=== PATIENT | female | born 1990 | race Caucasian/White ===

== ENCOUNTER → 2016-07-28 | Outpatient (CLI) | payer OTHER | END | disposition home or self-care (01) | LOC: MW.CHOBGYN 11:50 | PROVIDERS: ATTEND Advanced Practice Midwife | DX: Z34.90 Encounter for supervision of normal pregnancy, unspecified, unspecified trimester (principal) | CPT/HCPCS: 87081 ==

== ENCOUNTER 2016-08-07 23:08 | Outpatient (CLI) | payer OTHER ==
[2016-08-08 01:35] LABS: CHLORIDE,CL 108 mmol/L (98-110); SODIUM,NA 138 mmol/L (136-146)
[2016-08-08] MEDS ORDERED: hydrOXYzine Pamoate 25 MG Cap PO ONE (01:57)
[2016-08-08] MEDS ORDERED: hydrOXYzine Pamoate 25 MG Cap ONE (02:03)
== END 2016-08-08 06:20 | disposition home or self-care (01) ==
LOC: MW.OBCHECK 23:08 → MW.OB 23:09 → MW.OBCHECK 08-08 06:20
PROVIDERS: ATTEND Obstetrics & Gynecology
DX: Z34.93 Encounter for supervision of normal pregnancy, unspecified, third trimester (principal)
CPT/HCPCS: 36415; 59025; 80053; 81001; 83615; 84550; 85025; A9270

== ENCOUNTER → 2016-08-14 | Outpatient (CLI) | payer OTHER ==
[2016-08-14 12:26] LABS: CHLORIDE,CL 108 mmol/L (98-110); SODIUM,NA 137 mmol/L (136-146)
--- NOTE | 2016-08-17 13:21 | US ---
EXAM DATE: 08/14/16 PATIENT'S AGE: 26 Patient: ALENA LOCKETT Facility: [place], [place] Site . Site : [id number] Study: US OB Pelvis [id number]/[id number] 2:19:02 PM Ordering Physician: Konrad Nichols Final Report: HISTORY: . Evaluate interval growth. Technique: Obstetric ultrasound. Comparison: 03/24/2016. Findings: There is a living single intrauterine gestation with a calculated gestational age based on ultrasound measurements of 36 weeks, 3 days. This compares to a clinical age of 39 weeks, 0 days. Estimated weight is 3026 g which is at the 17th percentile. heart rate 145 beats per minute. - Measurements: Biparietal diameter: 8.9 cm - 36 weeks, 1 day - 12th percentile. Head circumference: 32.1 cm - 36 weeks, 2 days - less than 3rd percentile. Abdominal circumference: 33.2 cm - 37 weeks, 1 day - 21st percentile. Femur length: 7.1 cm - 36 weeks, 4 days - 7th percentile. - There is a normal quantity amniotic fluid with an BOB of 11.6. Impression: 1. Living single intrauterine gestation with calculated gestational age based on ultrasound measurements of 36 weeks, 3 days. This lags behind a gestational age of 39 weeks, 0 days. 2. Estimated weight is 3026 g which is at the 17th percentile. Note that the head circumference measurement is at less than 3rd percentile. Measurements as above. 3. Normal amniotic fluid index. Dictated by Trey Flores MD @ Aug 14 2016 4:08PM (Electronic Signature) Report Signed by Proxy. MELVA
== END ==
LOC: MW.US 10:15
PROVIDERS: ATTEND Advanced Practice Midwife
DX: O13.3 Gestational [pregnancy-induced] hypertension without significant proteinuria, third trimester (principal); O34.219 Maternal care for unspecified type scar from previous cesarean delivery
CPT/HCPCS: 36415; 76815-26; 76816; 80053; 82570; 84156; 84550; 85025

== ENCOUNTER 2016-08-15 07:33 | Inpatient (IN) | payer OTHER ==
[2016-08-15] MEDS ORDERED: Nalbuphine 10 MG/1 ML Vial IVPUSH PRN (07:44)
[2016-08-15] MEDS ORDERED: Butorphanol 1 MG/ML SDV IVPUSH PRN (07:44)
[2016-08-15] MEDS ORDERED: Misoprostol 200 MCG Tab PO PRN (07:44)
[2016-08-15] MEDS ORDERED: Methylergonovine 0.2 MG/1 ML Amp IM PRN (07:44)
[2016-08-15] MEDS ORDERED: Water For Irrigation,Sterile 1,000 ML Container IRR PRN (07:44)
[2016-08-15] MEDS ORDERED: Carboprost Tromethamine 250 MCG/1 ML Amp IM PRN (07:44)
[2016-08-15] MEDS ORDERED: Lidocaine 1% 50 ML MDV INJECT PRN (07:44)
[2016-08-15] MEDS ORDERED: Sodium Chloride 0.9% 2.5 ML Syringe FLUSH PRN (07:44)
[2016-08-15] MEDS ORDERED: Sodium Chloride 0.9% 10 ML Syringe FLUSH PRN (07:44)
[2016-08-15] MEDS ORDERED: Lactated Ringers 1,000 ML IV SCH (07:45)
--- NOTE | 2016-08-15 08:06 | PCM.LDHP ---
L&D History of Present Illness - General Date of Service: 08/15/16 Admit Problem/Dx: Patient Status Order with Admit Dx/Problem 08/15/16 07:44 Patient Status [ADT] Routine Admission Diagnosis/Problem Admission Diagnosis/Problem 08/15/16 07:57 26 yo EDC08/21/2016 39 1/7 wks. O+, RI, GBS neg. Hx prior C/S, 1 successful of 10lb child. Source of Information: Patient History Limitations: Reports: No Limitations - History of Present Illness Improves with: Reports: None Worsens with: Reports: None Associated Symptoms: Reports: N - Related Data Allergies/Adverse Reactions: Allergies Allergy/AdvReac Type Severity Reaction Status Date / Time clindamycin Allergy Rash Verified 08/20/14 15:32 Penicillins Allergy Rash Verified 08/20/14 15:32 H&P Review of Systems - Review of Systems: Review Of Systems: ROS reveals no pertinent complaints other than HPI. General: Reports: No Symptoms HEENT: Reports: No Symptoms Pulmonary: Reports: No Symptoms Cardiovascular: Reports: No Symptoms Gastrointestinal: Reports: No Symptoms Genitourinary: Reports: No Symptoms Musculoskeletal: Reports: No Symptoms Skin: Reports: No Symptoms Psychiatric: Reports: No Symptoms Neurological: Reports: No Symptoms Hematologic/Lymphatic: Reports: No Symptoms Immunologic: Reports: No Symptoms L&D Exam - Exam Exam: See Below - Vital Signs Weight: 84.368 kg - OB Specific Contraction Intensity: Strong Movement: Active Heart Tones: Present Heart Rate (FHR) Variability: Moderate (6-25 bmp) Presentation: Vertex - Powers Score Powers Score Cervix Position: Posterior Powers Score Consistency: Soft Powers Score Effacement: >80% Powers Score Dilation: > 5 cm Powers Score 's Station: -1 ,0 Powers Score Total: 10 - Exam General: Alert, Oriented, Cooperative HEENT: Hearing Intact Lungs: Normal Respiratory Effort Abdomen: Soft (gravid) Rectal Exam: Deferred Genitourinary: Normal bimanual exam, Cervical dilitation Back Exam: Full Range of Motion Extremities: Normal Inspection Skin: Warm, Dry, Intact Neurological: Cranial Nerves Intact Psychiatric: Alert, Normal Affect, Normal Mood - Problem List (1) Supervision of normal IUP (intrauterine ) in multigravida SNOMED Code(s): 053859099, 476966676, 967911844 ICD Code: Z34.80 - ENCOUNTER FOR SUPRVSN OF NORMAL , UNSP TRIMESTER Status: Acute Priority: High Current Visit: Yes Qualifiers: Trimester: third trimester Qualified Code(s): Z34.83 - Encounter for supervision of other normal , third trimester (2) Hx successful (vaginal after ), currently SNOMED Code(s): 461647369, 346351646, 096697951 ICD Code: O34.219 - MATERNAL CARE FOR UNSP TYPE SCAR FROM PREVIOUS DEL Status: Acute Priority: High Current Visit: Yes Problem List Initiated/Reviewed/Updated: Yes Orders Last 24hrs: Active Orders 24 hr Category Date Time Status Patient Status [ADT] Routine ADT 08/15/16 07:44 Active Heart Tones [RC] CONTINUOUS Care 08/15/16 07:44 Active Non Stress Test [RC] PER UNIT ROUTINE Care 08/15/16 07:44 Active May Shower [RC] ASDIRECTED Care 08/15/16 07:44 Active Notify Provider [RC] PRN Care 08/15/16 07:44 Active Up ad Ashli [RC] ASDIRECTED Care 08/15/16 07:44 Active Vaginal Exam [RC] PRN Care 08/15/16 07:44 Active Vital Signs [RC] PER UNIT ROUTINE Care 08/15/16 07:44 Active CBC W/O DIFF,HEMOGRAM [HEME] Routine Lab 08/15/16 07:44 Ordered TYPE AND SCREEN [BBK] Routine Lab 08/15/16 07:44 Ordered Butorphanol [Stadol] Med 08/15/16 07:44 Ordered 1 mg IVPUSH Q1H PRN Carboprost Tromethamine [Hemabate DS] Med 08/15/16 07:44 Ordered 250 mcg IM ASDIRECTED PRN Lactated Ringers [Ringers, Lactated] 1,000 ml Med 08/15/16 07:45 Ordered IV ASDIRECTED Lidocaine 1% [Xylocaine 1%] Med 08/15/16 07:44 Ordered 50 ml INJECT .ONCE PRN Methylergonovine [Methergine] Med 08/15/16 07:44 Ordered 0.2 mg IM ASDIRECTED PRN Misoprostol [Cytotec] Med 08/15/16 07:44 Ordered 200 mcg PO .ONCE PRN Nalbuphine [Nubain] Med 08/15/16 07:44 Ordered 10 mg IVPUSH Q1H PRN Oxytocin/Lactated Ringers [Pitocin in LR 30 Units/500 Med 08/15/16 07:45 Ordered ML] 30 unit in 500 ml IV ASDIRECTED Sodium Chloride 0.9% [Saline Flush] Med 08/15/16 07:44 Ordered 10 ml FLUSH ASDIRECTED PRN Sodium Chloride 0.9% [Saline Flush] Med 08/15/16 07:44 Ordered 2.5 ml FLUSH ASDIRECTED PRN Water For Irrigation,Sterile [Sterile Water for Med 08/15/16 07:44 Ordered Irrigation] 1,000 ml IRR ASDIRECTED PRN Scalp Electrode [WOMSER] Per Unit Routine Oth 08/15/16 07:44 Ordered Peripheral IV Insertion Adult [OM.PC] Routine Oth 08/15/16 07:44 Ordered Resuscitation Status Routine Resus Stat 08/15/16 07:44 Ordered Medication Orders Butorphanol Tartrate (Stadol) 1 mg IVPUSH Q1H PRN PRN Reason: Pain Carboprost Tromethamine (Hemabate Ds) 250 mcg IM ASDIRECTED PRN PRN Reason: Post Hemorrhage Lactated Ringer's (Ringers, Lactated) 1,000 mls @ 150 mls/hr IV ASDIRECTED EDGARD Oxytocin/Lactated Ringer's (Pitocin In Lr 30 Units/500 Ml) 30 unit in 500 mls @ 999 mls/hr IV ASDIRECTED EDGARD PRN Reason: 999 MUNITS/MIN Stop: 08/15/16 08:16 Lidocaine HCl (Xylocaine 1%) 50 ml INJECT .ONCE PRN PRN Reason: Laceration repair Methylergonovine Maleate (Methergine) 0.2 mg IM ASDIRECTED PRN PRN Reason: Post Hemorrhage Misoprostol (Cytotec) 200 mcg PO .ONCE PRN PRN Reason: Post Hemorrhage Nalbuphine HCl (Nubain) 10 mg IVPUSH Q1H PRN PRN Reason: Pain (severe 7-10) Stop: 08/15/16 09:45 Sodium Chloride (Saline Flush) 10 ml FLUSH ASDIRECTED PRN PRN Reason: Keep Vein Open Sodium Chloride (Saline Flush) 2.5 ml FLUSH ASDIRECTED PRN PRN Reason: Keep Vein Open Sterile Water (Sterile Water For Irrigation) 1,000 ml IRR ASDIRECTED PRN PRN Reason: delivery Assessment/Plan Comment:: Labor A: 26 yo EDC08/21/2016 39 1/7 wks. O+, RI, GBS neg. Hx prior C/S, 1 successful of 10lb child. P: Admit to L&D, anticipate . RN herson, Derik with anes, and Dr Clark updated on pt status. Dr Clark on his way in.
[2016-08-15] MEDS: Oxytocin/Lactated Ringers 30 UNIT/500 ML BAG IV SCH ×2 (09:55→12:36)
--- NOTE | 2016-08-15 10:27 | PCM.DEL ---
L & D Note - General Info Date of Service: 08/15/16 Mother's Due Date: 08/21/16 - Delivery Note Labor: spontaneous Delivery Outcome: Livebirth Infant Delivery Method: Spontaneous Vaginal Delivery Infant Delivery Mode: Spontaneous Presentation: Vertex Nuchal cord: none Anesthesia Type: None Anesthetic: lidocaine (xylocaine) 1% plain Local anesthetic volume: 2cc Amniotic Fluid Description: Clear Episiotomy Type: None Laceration: 1st degree Suture type: vicryl Placenta: intact, spontaneous Cord: 3 vessels Estimated blood loss: 200 Resuscitation needed: No Score 1 min: 7 Score 5 min: 8 Second Stage Interventions: Reports: Pushing Effectively Delivery Comments (Free Text/Narrative):: of viable female over intact perineum. Head delivered with great pushing, shoulders and body followed easily. to mothers abdomen. Delayed cord clamping. Pitocin to IVF. Cord clamped and cut by FOB. Placenta delivered grossly intact. Inspection noted 1st degree lac that was numbed with 1% lidocaine and repaired in the normal manor with 3-1 brittani. EBL 200cc, APGARS 7/8, Wt: 6lb 10oz. Mother and baby left in stable condition for recovery. Counts all correct. - General Info Date of Service: 08/15/16 Admission Dx/Problem (Free Text): Patient Status Order with Admit Dx/Problem 08/15/16 07:44 Patient Status [ADT] Routine Admission Diagnosis/Problem Admission Diagnosis/Problem 08/15/16 07:57 26 yo EDC/ 39 1/7 wks. O+, RI, GBS neg. Hx prior C/S, 1 successful of 10lb child. Functional Status: Reports: pain controlled, tolerating diet - Review of Systems General: Reports: No Symptoms HEENT: Reports: no symptoms Pulmonary: Reports: no symptoms Cardiovascular: Reports: No Symptoms Gastrointestinal: Reports: No symptoms Genitourinary: Reports: no symptoms Musculoskeletal: Reports: no symptoms Skin: Reports: no symptoms Neurological: Reports: No Symptoms Psychiatric: Reports: no symptoms - Patient Data Weight - most recent: 84.368 kg Lab Results last 24 hrs: Laboratory Results - last 24 hr 08/15/16 08/15/16 Range/Units 07:58 07:58 WBC 12.30 H (4.0-11.0) K/uL RBC 4.36 (4.30-5.90) M/uL Hgb 13.9 (12.0-16.0) g/dL Hct 40.0 (36.0-46.0) % MCV 91.7 (80.0-98.0) fL MCH 31.9 (27.0-32.0) pg MCHC 34.8 (31.0-37.0) g/dL RDW Std Deviation 48.8 (28.0-62.0) fl RDW Coeff of [place] 15 (11.0-15.0) % Plt Count 166 (150-400) K/uL MPV 13.20 H (7.40-12.00) fL Nucleated RBC % 0.0 /100WBC Nucleated RBCs # 0 K/uL Blood Type O POSITIVE Antibody Screen NEGATIVE Med Orders - Current: Current Medications Butorphanol Tartrate (Stadol) 1 mg IVPUSH Q1H PRN PRN Reason: Pain Carboprost Tromethamine (Hemabate Ds) 250 mcg IM ASDIRECTED PRN PRN Reason: Post Hemorrhage Lactated Ringer's (Ringers, Lactated) 1,000 mls @ 150 mls/hr IV ASDIRECTED EDGARD Last Admin: 08/15/16 08:07 Dose: 150 mls/hr Lidocaine HCl (Xylocaine 1%) 50 ml INJECT .ONCE PRN PRN Reason: Laceration repair Last Admin: 08/15/16 10:03 Dose: 50 ml Methylergonovine Maleate (Methergine) 0.2 mg IM ASDIRECTED PRN PRN Reason: Post Hemorrhage Misoprostol (Cytotec) 200 mcg PO .ONCE PRN PRN Reason: Post Hemorrhage Sodium Chloride (Saline Flush) 10 ml FLUSH ASDIRECTED PRN PRN Reason: Keep Vein Open Last Admin: 08/15/16 10:06 Dose: 10 ml Sodium Chloride (Saline Flush) 2.5 ml FLUSH ASDIRECTED PRN PRN Reason: Keep Vein Open Sterile Water (Sterile Water For Irrigation) 1,000 ml IRR ASDIRECTED PRN PRN Reason: delivery Discontinued Medications Oxytocin/Lactated Ringer's (Pitocin In Lr 30 Units/500 Ml) 30 unit in 500 mls @ 999 mls/hr IV ASDIRECTED EDGARD PRN Reason: 999 MUNITS/MIN Stop: 08/15/16 08:16 Last Admin: 08/15/16 09:55 Dose: 999 munits/min, 999 mls/hr Nalbuphine HCl (Nubain) 10 mg IVPUSH Q1H PRN PRN Reason: Pain (severe 7-10) Stop: 08/15/16 09:45 - Exam General: alert, oriented, cooperative, no acute distress Lungs: Normal respiratory effort Abdomen: soft, no tenderness, no distension (Female) Exam: Normal External Exam, Normal Bimanual Exam, Vaginal Bleeding, Vaginal Lesions Back Exam: Full Range of Motion Extremities: no edema Skin: warm, dry, intact Wound/Incisions: healing well Neurological: no new focal deficit Psy/Mental Status: alert, normal affect, normal mood - Problem List & Annotations (1) Supervision of normal IUP (intrauterine ) in multigravida SNOMED Code(s): 743183987, 799848504, 131670540 Code(s): Z34.80 - ENCOUNTER FOR SUPRVSN OF NORMAL , UNSP TRIMESTER Status: Acute Priority: High Current Visit: Yes Qualifiers: Trimester: third trimester Qualified Code(s): Z34.83 - Encounter for supervision of other normal , third trimester (2) Hx successful (vaginal after ), currently SNOMED Code(s): 604246078, 109626735, 196732343 Code(s): O34.219 - MATERNAL CARE FOR UNSP TYPE SCAR FROM PREVIOUS DEL Status: Acute Priority: High Current Visit: Yes (3) , delivered, current hospitalization SNOMED Code(s): 477517834 Code(s): O34.219 - MATERNAL CARE FOR UNSP TYPE SCAR FROM PREVIOUS DEL Status: Acute Priority: Medium Current Visit: Yes - Problem List Review Problem List Initiated/Reviewed/Updated: Yes - My Orders Last 24 Hours: My Active Orders 08/15/16 07:44 Patient Status [ADT] Routine Heart Tones [RC] CONTINUOUS Non Stress Test [RC] PER UNIT ROUTINE May Shower [RC] ASDIRECTED Notify Provider [RC] PRN Up ad Ashli [RC] ASDIRECTED Vaginal Exam [RC] PRN Vital Signs [RC] PER UNIT ROUTINE Butorphanol [Stadol] 1 mg IVPUSH Q1H PRN Carboprost Tromethamine [Hemabate DS] 250 mcg IM ASDIRECTED PRN Lidocaine 1% [Xylocaine 1%] 50 ml INJECT .ONCE PRN Methylergonovine [Methergine] 0.2 mg IM ASDIRECTED PRN Misoprostol [Cytotec] 200 mcg PO .ONCE PRN Sodium Chloride 0.9% [Saline Flush] 10 ml FLUSH ASDIRECTED PRN Sodium Chloride 0.9% [Saline Flush] 2.5 ml FLUSH ASDIRECTED PRN Water For Irrigation,Sterile [Sterile Water for Irrigation] 1,000 ml IRR ASDIRECTED PRN Scalp Electrode [WOMSER] Per Unit Routine Peripheral IV Insertion Adult [OM.PC] Routine Resuscitation Status Routine 08/15/16 07:45 Lactated Ringers [Ringers, Lactated] 1,000 ml IV ASDIRECTED - Assessment Assessment:: of viable female. 1st degree lac with repair, EBL 200cc, AGPARS 7/8, Wt: 6lb 10oz. Stable - Plan Plan:: Labor A: 26 yo EDC08/21/2016 39 1/7 wks. O+, RI, GBS neg. Hx prior C/S, 1 successful of 10lb child. P: Admit to L&D, anticipate . RN herson, Derik with anechino, and Dr Clark updated on pt status. Dr Clark on his way in. Delivered: P: routine pp plan of care
[2016-08-15] MEDS ORDERED: Witch Hazel Medicated Pads 40/Jar TOP PRN (10:28)
[2016-08-15] MEDS ORDERED: Acetaminophen 500 MG Tab PO PRN ×2 (10:28)
[2016-08-15] MEDS ORDERED: Docusate Sodium 100 MG Cap PO PRN (10:28)
[2016-08-15] MEDS ORDERED: Ibuprofen 400 MG Tab PO PRN (10:28)
[2016-08-15] MEDS ORDERED: Benzocaine/Menthol 20%-0.5% Spray 78 GM Cannister TOP PRN (10:28)
[2016-08-15] MEDS ORDERED: Bisacodyl 10 MG Supp RECTAL PRN (10:28)
[2016-08-15] MEDS ORDERED: Lanolin 100% Cream 7 GM Tube TOP PRN (10:28)
[2016-08-15] MEDS ORDERED: oxyCODONE 5 MG Tab PO PRN (10:28)
[2016-08-15] MEDS: Ibuprofen 800 MG Tab PO PRN ×2 (12:03→20:03)
[2016-08-15] MEDS ORDERED: Oxytocin/Lactated Ringers 30 UNIT/500 ML BAG ONE (12:29)
[2016-08-16] MEDS: Ibuprofen 800 MG Tab PO PRN ×2 (03:11→11:33)
[2016-08-16 04:50] VITALS: BP 116/68
--- NOTE | 2016-08-16 11:09 | PCM.DCSUM1 ---
Discharge Summary - Hospital Course Free Text/Narrative:: Discharge home with . Follow up 6 weeks or sooner as needed. - Discharge Data Discharge Date: 08/16/16 Discharge Disposition: Home, Self-Care 01 Condition: Good - Discharge Diagnosis/Problem(s) (1) Supervision of normal IUP (intrauterine ) in multigravida SNOMED Code(s): 825925594, 592331072, 568865476 ICD Code: Z34.80 - ENCOUNTER FOR SUPRVSN OF NORMAL , UNSP TRIMESTER Status: Acute Priority: High Current Visit: Yes Qualifiers: Trimester: third trimester Qualified Code(s): Z34.83 - Encounter for supervision of other normal , third trimester (2) Hx successful (vaginal after ), currently SNOMED Code(s): 005134467, 754076290, 663404350 ICD Code: O34.219 - MATERNAL CARE FOR UNSP TYPE SCAR FROM PREVIOUS DEL Status: Acute Priority: High Current Visit: Yes (3) , delivered, current hospitalization SNOMED Code(s): 310746226 ICD Code: O34.219 - MATERNAL CARE FOR UNSP TYPE SCAR FROM PREVIOUS DEL Status: Acute Priority: Medium Current Visit: Yes - Patient Instructions Diet: Usual Diet as Tolerated Activity: As Tolerated, Rest and Relax Today Driving: May Drive Today Showering/Bathing: May Shower Notify Provider of: Fever, Increased Pain, Swelling and Redness, Nausea and/or Vomiting Other/Special Instructions: Discharge home with infant. Follow up 6 weeks or sooner as needed. - Discharge Plan Patient Handouts: Home Care Instructions for Mom, Vaginal Delivery, Care After - General Info Date of Service: 08/16/16 Functional Status: Reports: pain controlled, tolerating diet, ambulating, urinating - Review of Systems General: Reports: No Symptoms HEENT: Reports: no symptoms Pulmonary: Reports: no symptoms Cardiovascular: Reports: No Symptoms Gastrointestinal: Reports: No symptoms Genitourinary: Reports: no symptoms Musculoskeletal: Reports: no symptoms Skin: Reports: no symptoms Neurological: Reports: No Symptoms Psychiatric: Reports: no symptoms - Patient Data Vitals - Most Recent: Last Vital Signs Temp 36.7 C 08/16/16 04:00 Pulse 70 08/16/16 04:00 Resp 14 08/16/16 04:00 BP 116/68 08/16/16 04:00 Pulse Ox 98 08/16/16 04:00 Weight - Most Recent: 84.368 kg Med Orders - Current: Current Medications Acetaminophen (Tylenol Extra Strength) 500 mg PO Q4H PRN PRN Reason: Pain Acetaminophen (Tylenol Extra Strength) 1,000 mg PO Q4H PRN PRN Reason: Pain Last Admin: 08/15/16 12:56 Dose: 1,000 mg Benzocaine/Menthol (Dermoplast Pain Relief 20%-0.5% [place]) 78 gm TOP ASDIRECTED PRN PRN Reason: Perineal Comfort Measure Last Admin: 08/15/16 12:07 Dose: 11 spray Bisacodyl (Dulcolax) 10 mg RECTAL .ONCE PRN PRN Reason: Constipation Docusate Sodium (Colace) 100 mg PO BID PRN PRN Reason: Constipation Last Admin: 08/15/16 20:03 Dose: 100 mg Emollient Ointment (Lansinoh Hpa) 0 gm TOP ASDIRECTED PRN PRN Reason: Sore Nipples Ibuprofen (Motrin) 400 mg PO Q4H PRN PRN Reason: Pain Ibuprofen (Motrin) 800 mg PO Q6H PRN PRN Reason: Pain Last Admin: 08/16/16 03:11 Dose: 800 mg Oxycodone HCl (Oxycodone) 5 mg PO Q2H PRN PRN Reason: Pain Last Admin: 08/15/16 12:57 Dose: 5 mg Witch Abi (Tucks) 1 pad TOP ASDIRECTED PRN PRN Reason: comfort care Last Admin: 08/15/16 12:07 Dose: 1 pad Discontinued Medications Butorphanol Tartrate (Stadol) 1 mg IVPUSH Q1H PRN PRN Reason: Pain Carboprost Tromethamine (Hemabate Ds) 250 mcg IM ASDIRECTED PRN PRN Reason: Post Hemorrhage Lactated Ringer's (Ringers, Lactated) 1,000 mls @ 150 mls/hr IV ASDIRECTED EDGARD Last Admin: 08/15/16 08:07 Dose: 150 mls/hr Oxytocin/Lactated Ringer's (Pitocin In Lr 30 Units/500 Ml) 30 unit in 500 mls @ 999 mls/hr IV ASDIRECTED EDGARD PRN Reason: 999 MUNITS/MIN Stop: 08/15/16 08:16 Last Infusion: 08/15/16 12:36 Dose: 200 munits/min, 200 mls/hr Oxytocin/Lactated Ringer's (Pitocin In Lr 30 Units/500 Ml) Confirm Administered Dose 30 unit in 500 mls @ as directed .ROUTE .STK-MED ONE Stop: 08/15/16 12:30 Last Admin: 08/16/16 02:55 Dose: Not Given Lidocaine HCl (Xylocaine 1%) 50 ml INJECT .ONCE PRN PRN Reason: Laceration repair Last Admin: 08/15/16 10:03 Dose: 50 ml Methylergonovine Maleate (Methergine) 0.2 mg IM ASDIRECTED PRN PRN Reason: Post Hemorrhage Misoprostol (Cytotec) 200 mcg PO .ONCE PRN PRN Reason: Post Hemorrhage Nalbuphine HCl (Nubain) 10 mg IVPUSH Q1H PRN PRN Reason: Pain (severe 7-10) Stop: 08/15/16 09:45 Sodium Chloride (Saline Flush) 10 ml FLUSH ASDIRECTED PRN PRN Reason: Keep Vein Open Last Admin: 08/15/16 10:06 Dose: 10 ml Sodium Chloride (Saline Flush) 2.5 ml FLUSH ASDIRECTED PRN PRN Reason: Keep Vein Open Sterile Water (Sterile Water For Irrigation) 1,000 ml IRR ASDIRECTED PRN PRN Reason: delivery - Exam General: Reports: alert, oriented, cooperative, no acute distress Lungs: Reports: Clear to auscultation, Normal respiratory effort Cardiovascular: Reports: Regular Rate, Regular Rhythm Abdomen: Reports: soft, no tenderness, no distension (Female) Exam: Vaginal Bleeding Rectal (Female) Exam: Deferred Back Exam: Reports: Full Range of Motion Extremities: Reports: no edema, normal pulses Skin: Reports: warm Wound/Incisions: Reports: healing well Neurological: Reports: no new focal deficit Psy/Mental Status: Reports: alert, normal affect, normal mood *Q Meaningful Use (DIS) - VTE *Q VTE Criteria *Q: - Stroke *Q Stroke Criteria *Q: - AMI *Q AMI Criteria *Q:
== END 2016-08-16 11:55 | disposition home or self-care (01) | DRG 775 ==
LOC: MW.OB 07:33 → MW.OBCHECK 07:33 → MW.OB 10:37 → OBSVTOIN 10:37 → MW.OB 17:20
PROVIDERS: ADMIT Obstetrics & Gynecology; ATTEND Obstetrics & Gynecology
PROC: 10E0XZZ Delivery of Products of Conception, External Approach (ICD-10-PCS; principal; 2016-08-15)
PROC: 0HQ9XZZ Repair Perineum Skin, External Approach (ICD-10-PCS; 2016-08-15)
DX: O70.0 First degree perineal laceration during delivery (principal); Z3A.39 39 weeks gestation of pregnancy; Z37.0 Single live birth
CPT/HCPCS: 36415; 59025; 85027; 86850; 86900; 86901; A9270-GY; J7120

== ENCOUNTER 2017-09-27 18:08 | Emergency (ER) | payer OTHER ==
--- NOTE | 2017-09-27 18:11 | EDM.PDOC ---
ED HPI GENERAL MEDICAL PROBLEM - General Stated Complaint: JOINT PAIN IN UPPER EXTREMITIES Time Seen by Provider: 09/27/17 18:12 Source of Information: Reports: Patient History Limitations: Reports: No Limitations - History of Present Illness INITIAL COMMENTS - FREE TEXT/NARRATIVE: History of present illness: []She has had 2 days of right elbow pain that is worsening and her left elbow is also starting to hurt now.. She denies any trauma and states she has not been doing any excessive activities or repetitive motions. Patient also denies any fevers or chills. She has a family history of RA but she has not been diagnosed. Patient also notes she had a venomous spider bite on her ankle 6 months ago and has continued ankle pain. She has not followed up with her primary care physician for this. Review of systems: As per history of present illness and below otherwise all systems reviewed and negative. Past medical history: As per history of present illness and as reviewed below otherwise noncontributory. Surgical history: As per history of present illness and as reviewed below otherwise noncontributory. Social history: No reported history of drug or alcohol abuse. Family history: As per history of present illness and as reviewed below otherwise noncontributory. Physical exam: General: Well developed, well nourished in NAD HEENT: Atraumatic, normocephalic, pupils reactive, negative for conjunctival pallor or scleral icterus, mucous membranes moist, throat clear, neck supple, nontender, trachea midline. Lungs: Clear to auscultation, breath sounds equal bilaterally, chest nontender. Heart: S1S2, regular, negative for clicks, rubs, or JVD. Abdomen: Soft, nondistended, nontender. Negative for masses or hepatosplenomegaly. Negative for costovertebral tenderness. Pelvis: Stable nontender. Genitourinary: Deferred. Rectal: Deferred. Extremities: Atraumatic, right upper extremity no gross elbow deformities or palpable effusion. She has passive range of motion and supination pronation is intact. Sensation distally is normal. negative for cords or calf pain. Neurovascular unremarkable. Neuro: Awake, alert, oriented. Cranial nerves II through XII unremarkable. Cerebellum unremarkable. Motor and sensory unremarkable throughout. Exam nonfocal. Diagnostics: [] Therapeutics: []Toradol, IM, ice pack. Impression: []Bilateral elbow joint pain right worse than left Plan: []Ice elbow 20 minutes at a time, diclofenac for pain with arm sling for comfort follow-up with primary care for further workup of possible RA Definitive disposition and diagnosis as appropriate pending reevaluation and review of above. 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: Psychiatric History: Reports: Depression - Past Surgical History GI Surgical History: Reports: Cholecystectomy Social & Family History - Family History Family Medical History: Noncontributory - Caffeine Use Caffeine Use: Reports: Coffee Review of Systems - Review of Systems Review Of Systems: See Below (See history of present illness) ED EXAM, GENERAL - Physical Exam Exam: See Below (See history of present illness) Course - Orders/Labs/Meds Orders: Active Orders 24 hr Category Date Time Status Splinting [RC] ASDIRECTED Care 09/27/17 18:21 Active Meds: Medications Discontinued Medications Generic Name Dose Route Start Last Admin Trade Name Bib PRN Reason Stop Dose Admin Ketorolac Tromethamine 60 mg 09/27/17 18:20 Toradol IM 09/27/17 18:21 ONETIME ONE - Re-Assessments/Exams Free Text/Narrative Re-Assessment/Exam: Patient's exam does not suggest septic joint at this time and she is afebrile without history of fevers. I did inform her of what to look for and when to return if she is to follow-up with her primary care doctor this week for workup for RA. 09/27/17 18:31 Departure - Departure Time of Disposition: 18:30 Disposition: Home, Self-Care 01 Condition: Good Clinical Impression: Right elbow pain - Discharge Information Referrals: Jackeline Xiao NP [Primary Care Provider] - Additional Instructions: The following information is given to patients seen in the emergency department who are being discharged to home. This information is to outline your options for follow-up care. We provide all patients seen in our emergency department with a follow-up referral. The need for follow-up, as well as the timing and circumstances, are variable depending upon the specifics of your emergency department visit. If you don't have a primary care physician on staff, we will provide you with a referral. We always advise you to contact your personal physician following an emergency department visit to inform them of the circumstance of the visit and for follow-up with them and/or the need for any referrals to a consulting specialist. The emergency department will also refer you to a specialist when appropriate. This referral assures that you have the opportunity for follow-up care with a specialist. All of these measure are taken in an effort to provide you with optimal care, which includes your follow-up. Under all circumstances we always encourage you to contact your private physician who remains a resource for coordinating your care. When calling for follow-up care, please make the office aware that this follow-up is from your recent emergency room visit. If for any reason you are refused follow-up, please contact the [facility] Emergency Department at and asked to speak to the emergency department charge nurse. Ice for 20 minutes of time, diclofenac for pain wear arm sling to immobilize elbow for comfort and keep your follow-up appointment tomorrow with her primary doctor as scheduled. - My Orders Last 24 Hours: My Active Orders 09/27/17 18:21 Splinting [RC] ASDIRECTED - Assessment/Plan Last 24 Hours: My Active Orders 09/27/17 18:21 Splinting [RC] ASDIRECTED
[2017-09-27] MEDS ORDERED: Ketorolac 60 MG/2 ML SDV IM ONE (18:20)
[2017-09-27 18:55] VITALS: BP 135/93
== END 2017-09-27 18:25 | disposition home or self-care (01) ==
LOC: MW.ED 18:08
DX: M25.521 Pain in right elbow (principal); M25.522 Pain in left elbow; Z88.1 Allergy status to other antibiotic agents; Z88.0 Allergy status to penicillin
CPT/HCPCS: 96372; 99283; J1885

== ENCOUNTER 2020-04-27 13:00 | Emergency (ER) | payer BC, OTHER ==
--- NOTE | 2020-04-27 13:08 | EDM.PDOC ---
ED HPI GENERAL MEDICAL PROBLEM - General Chief Complaint: Back Pain or Injury Stated Complaint: LOWER BACK PIAN Time Seen by Provider: 04/27/20 13:03 Source of Information: Reports: Patient History Limitations: Reports: No Limitations - History of Present Illness INITIAL COMMENTS - FREE TEXT/NARRATIVE: HISTORY AND PHYSICAL: History of present illness: Patient is a 29-year-old female who presents to the emergency room with complaints of left flank pain over the past 3 to 4 days. She states the pain is constant although it is aggravated with physical movement/activity. She denies any new strenuous activities that would cause any muscular strain. She states "I feel like it is inside". She does have chronic urinary tract infections and states she did have some discharge which is now resolved. She has no concerns for STIs. Patient denies any fever, chills, headache, change in vision, syncope or near syncope. Denies any chest pain, shortness of breath or cough. Denies any nausea, vomiting, diarrhea, constipation or dysuria. Has not noted any blood in urine or stool. Patient has been eating and drinking appropriately. Review of systems: As per history of present illness and below otherwise all systems reviewed and negative. Past medical history: As per history of present illness and as reviewed below otherwise noncontributory. Surgical history: As per history of present illness and as reviewed below otherwise noncontributory. Social history: See social history for further information Family history: As per history of present illness and as reviewed below otherwise noncontributory. Physical exam: General: Well developed and well nourished. Alert and orientated x 3. Nontoxic in appearance and in no acute distress. Vital signs are stable and have been reviewed by me. Nursing notes were reviewed. HEENT: Atraumatic, normocephalic, pupils equal and reactive bilaterally, negative for conjunctival pallor or scleral icterus, mucous membranes moist, nontender, trachea midline. No drooling or trismus noted. No meningeal signs. No hot potato voice noted. Lungs: Clear to auscultation bilaterally. No wheezes, rales, or rhonchi. Chest nontender. Normal work of breathing, no accessory muscles used. Heart: S1S2, regular rate and rhythm without overt murmur, gallops, or rubs. No JVD. No peripheral edema Abdomen: Soft, nondistended, nontender. Normoactive bowel sounds. Negative for masses. costovertebral tenderness. Pelvis: Stable nontender. Genitourinary/Rectal: Deferred. C-spine/Back: No pinpoint vertebral tenderness upon palpation. No crepitus, step-offs or obvious deformities. Patient is ambulatory into the emergency room without difficulty or deficit. Able to rock back on heels and walk on toes. Denies any urinary or fecal incontinence. Denies any numbness, tingling or saddle paresthesia. No concerns of serious infection, fracture or cord compression, or cauda equina syndrome. Deep tendon reflexes brisk bilaterally. Skin: Intact, warm, dry. No lesions or rashes noted. Hematologic: No petechiae or purpra. Mucosa appropriate color and normal nail bed color and refill. Extremities: Atraumatic, moves all extremities per self without difficulty or deficits, negative for cords or calf pain. Neurovascular unremarkable. Neuro: Awake, alert, oriented. Cranial nerves II through XII unremarkable. Cerebellum unremarkable. Motor and sensory unremarkable throughout. Exam nonfocal. Psychiatric: Mood and affect are appropriate. Normal thought process. Answering questions appropriately. Notes: *This patient was seen and evaluated during the 2019 SARS-CoV-2 novel coronavirus pandemic period. Community viral transmission is ongoing at time of this encounter and the emergency department is operating under pandemic response procedures. Patient does have a urinary tract infection, CT is otherwise unremarkable. Urine culture has been added. I have talked with the patient about today's findings, in addition to providing specific details for plan of care. Reassessment at the time of disposition demonstrates that the patient is in no acute distress. The patient is stable for discharge, counseling was provided and we discussed in great detail signs and symptoms that would prompt them to return to the Emergency Department. Medication, follow up and supportive care measures were reviewed and discussed. Voices understanding and is agreeable to plan of care. Denies any further questions or concerns at this time. Diagnostics: CBC, CMP, UA, HCGU, CT abd/pelvis Therapeutics: IV fluids, Toradol, Morphine Prescription: Cipro Impression: Pyelonephritis, left Plan: 1. You have a urinary tract infection that will require antibiotics. Please avoid taking your Hydroxyzine while taking the Cipro (antibiotic) as it can cause adverse effects. Increase your fluids. 2. You can alternate Tylenol and ibuprofen as needed for pain and fever management. 3. We encourage you to follow up with your primary care provider next week for re-evaluation and further care/management. 4. If your symptoms should worsen, new symptoms develop or any of the signs and symptoms we discussed should arise please return to the emergency room or call 911 (if needed). Definitive disposition and diagnosis as appropriate pending reevaluation and review of above. left flank Pain Score (Numeric/FACES): 3 - Related Data Allergies Allergy/AdvReac Type Severity Reaction Status Date / Time clindamycin Allergy Rash Verified 04/27/20 13:12 Penicillins Allergy Rash Verified 04/27/20 13:12 Home Meds: Home Meds Diclofenac Sodium [Voltaren] 75 mg PO BIDMEALS PRN #20 tab.cr 09/27/17 [Rx] Ciprofloxacin HCl [Cipro] 500 mg PO BID 7 Days #14 tablet 04/27/20 [Rx] FLUoxetine [PROzac] 40 mg PO DAILY 04/27/20 [History] hydrOXYzine HCL [Hydroxyzine HCl] 25 mg PO QID PRN 04/27/20 [History] traMADol [Ultram] 50 mg PO Q4H PRN #15 tab 04/27/20 [Rx] Past Medical History - Past Health History Medical/Surgical History: Denies Medical/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 ED EXAM,LOWER BACK PAIN/INJURY - Physical Exam Exam: See Below (See dictation) Course - Vital Signs Last Recorded V/S: Last Vital Signs Temp 98.3 F 04/27/20 13:08 Pulse 108 H 04/27/20 13:08 Resp 18 04/27/20 13:08 BP 147/101 H 04/27/20 13:08 Pulse Ox 94 L 04/27/20 13:08 - Orders/Labs/Meds Orders: Active Orders 24 hr Category Date Time Status CULTURE URINE [RM] Stat Lab 04/27/20 14:40 Received Labs: Laboratory Tests 01/23/21 01/23/21 01/23/21 Range/Units 13:35 14:40 14:40 WBC (4.0-11.0) K/uL RBC (4.30-5.90) M/uL Hgb (12.0-16.0) g/dL Hct (36.0-46.0) % MCV (80.0-98.0) fL MCH (27.0-32.0) pg MCHC (31.0-37.0) g/dL RDW Std Deviation (28.0-62.0) fl RDW Coeff of [place] (11.0-15.0) % Plt Count (150-400) K/uL MPV (7.40-12.00) fL Neut % (Auto) (48.0-80.0) % Lymph % (Auto) (16.0-40.0) % Whitley % (Auto) (0.0-15.0) % Eos % (Auto) (0.0-7.0) % Baso % (Auto) (0.0-1.5) % Neut # (Auto) (1.4-5.7) K/uL Lymph # (Auto) (0.6-2.4) K/uL Whitley # (Auto) (0.0-0.8) K/uL Eos # (Auto) (0.0-0.7) K/uL Baso # (Auto) (0.0-0.1) K/uL Nucleated RBC % /100WBC Nucleated RBCs # K/uL Sodium (136-145) mmol/L Potassium (3.5-5.1) mmol/L Chloride (98-107) mmol/L Carbon Dioxide (21.0-32.0) mmol/L BUN (7.0-18.0) mg/dL Creatinine (0.6-1.0) mg/dL Est Cr Clr Drug Dosing mL/min Estimated GFR (MDRD) ml/min Glucose (74-106) mg/dL Calcium (8.5-10.1) mg/dL Total Bilirubin (0.2-1.0) mg/dL AST (15-37) IU/L ALT (14-63) IU/L Alkaline Phosphatase (46-116) U/L Total Protein (6.4-8.2) g/dL Albumin (3.4-5.0) g/dL Globulin (2.6-4.0) g/dL Albumin/Globulin Ratio (0.9-1.6) Urine Color YELLOW Urine Appearance SLT CLOUDY Urine pH 5.5 (5.0-8.0) Ur Specific [place] >= 1.030 (1.001-1.035) Urine Protein NEGATIVE (NEGATIVE) mg/dL Urine Glucose (UA) NEGATIVE (NEGATIVE) mg/dL Urine Ketones TRACE H (NEGATIVE) mg/dL Urine Occult Blood SMALL H (NEGATIVE) Urine Nitrite NEGATIVE (NEGATIVE) Urine Bilirubin NEGATIVE (NEGATIVE) Urine Urobilinogen 0.2 (<2.0) EU/dL Ur Leukocyte Esterase SMALL H (NEGATIVE) Urine RBC 2-4 (0-2/HPF) Urine WBC 6-8 (0-5/HPF) Ur Epithelial Cells MODERATE (NONE-FEW) Amorphous Sediment LIGHT (NEGATIVE) Urine Bacteria 1+ H (NEGATIVE) Urine Mucus MODERATE (NONE-MOD) Urine HCG, Qual NEGATIVE (NEGATIVE) Oumou species DNA NEGATIVE (NEGATIVE) Gardnerella DNA Probe NEGATIVE (NEGATIVE) Trichomonas DNA Probe NEGATIVE (NEGATIVE) 04/27/20 04/27/20 Range/Units 14:40 14:40 WBC 9.20 (4.0-11.0) K/uL RBC 4.95 (4.30-5.90) M/uL Hgb 15.1 (12.0-16.0) g/dL Hct 44.0 (36.0-46.0) % MCV 88.9 (80.0-98.0) fL MCH 30.5 (27.0-32.0) pg MCHC 34.3 (31.0-37.0) g/dL RDW Std Deviation 42.9 (28.0-62.0) fl RDW Coeff of [place] 13 (11.0-15.0) % Plt Count 241 (150-400) K/uL MPV 11.90 (7.40-12.00) fL Neut % (Auto) 67.1 (48.0-80.0) % Lymph % (Auto) 23.2 (16.0-40.0) % Whitley % (Auto) 8.0 (0.0-15.0) % Eos % (Auto) 1.3 (0.0-7.0) % Baso % (Auto) 0.4 (0.0-1.5) % Neut # (Auto) 6.2 H (1.4-5.7) K/uL Lymph # (Auto) 2.1 (0.6-2.4) K/uL Whitley # (Auto) 0.7 (0.0-0.8) K/uL Eos # (Auto) 0.1 (0.0-0.7) K/uL Baso # (Auto) 0.0 (0.0-0.1) K/uL Nucleated RBC % 0.0 /100WBC Nucleated RBCs # 0 K/uL Sodium 138 (136-145) mmol/L Potassium 3.3 L (3.5-5.1) mmol/L Chloride 102 (98-107) mmol/L Carbon Dioxide 26.1 (21.0-32.0) mmol/L BUN 8 (7.0-18.0) mg/dL Creatinine 0.8 (0.6-1.0) mg/dL Est Cr Clr Drug Dosing 87.99 mL/min Estimated GFR (MDRD) > 60.0 ml/min Glucose 138 H (74-106) mg/dL Calcium 8.7 (8.5-10.1) mg/dL Total Bilirubin 0.4 (0.2-1.0) mg/dL AST 22 (15-37) IU/L ALT 39 (14-63) IU/L Alkaline Phosphatase 105 (46-116) U/L Total Protein 8.1 (6.4-8.2) g/dL Albumin 3.4 (3.4-5.0) g/dL Globulin 4.7 H (2.6-4.0) g/dL Albumin/Globulin Ratio 0.7 L (0.9-1.6) Urine Color Urine Appearance Urine pH (5.0-8.0) Ur Specific [place] (1.001-1.035) Urine Protein (NEGATIVE) mg/dL Urine Glucose (UA) (NEGATIVE) mg/dL Urine Ketones (NEGATIVE) mg/dL Urine Occult Blood (NEGATIVE) Urine Nitrite (NEGATIVE) Urine Bilirubin (NEGATIVE) Urine Urobilinogen (<2.0) EU/dL Ur Leukocyte Esterase (NEGATIVE) Urine RBC (0-2/HPF) Urine WBC (0-5/HPF) Ur Epithelial Cells (NONE-FEW) Amorphous Sediment (NEGATIVE) Urine Bacteria (NEGATIVE) Urine Mucus (NONE-MOD) Urine HCG, Qual (NEGATIVE) Oumou species DNA (NEGATIVE) Gardnerella DNA Probe (NEGATIVE) Trichomonas DNA Probe (NEGATIVE) Meds: Medications Discontinued Medications Generic Name Dose Route Start Last Admin Trade Name Freq PRN Reason Stop Dose Admin Sodium Chloride 1,000 mls @ 999 mls/hr 04/27/20 13:27 04/27/20 14:31 Normal Saline IV 04/27/20 14:27 999 mls/hr STAT ONE Administration Ketorolac Tromethamine 30 mg 04/27/20 13:27 04/27/20 14:31 Toradol IVPUSH 04/27/20 13:28 30 mg ONETIME ONE Administration Morphine Sulfate 2 mg 04/27/20 15:42 04/27/20 15:50 Morphine IVPUSH 04/27/20 15:43 2 mg ONETIME ONE Administration Departure - Departure Time of Disposition: 15:50 Disposition: Home, Self-Care 01 Clinical Impression: Pyelonephritis - Discharge Information Prescriptions: Ciprofloxacin HCl [Cipro] 500 mg PO BID 7 Days #14 tablet traMADol [Ultram] 50 mg PO Q4H PRN #15 tab PRN Reason: Pain Instructions: Pyelonephritis, Adult, [id number] Referrals: Jacqueline Chavez DO [Primary Care Provider] - Forms: ED Department Discharge Additional Instructions: The following information is given to patients seen in the emergency department who are being discharged to home. This information is to outline your options for follow-up care. We provide all patients seen in our emergency department with a follow-up referral. The need for follow-up, as well as the timing and circumstances, are variable depending upon the specifics of your emergency department visit. If you don't have a primary care physician on staff, we will provide you with a referral. We always advise you to contact your personal physician following an emergency department visit to inform them of the circumstance of the visit and for follow-up with them and/or the need for any referrals to a consulting specialist. The emergency department will also refer you to a specialist when appropriate. This referral assures that you have the opportunity for follow-up care with a specialist. All of these measure are taken in an effort to provide you with optimal care, which includes your follow-up. Under all circumstances we always encourage you to contact your private physician who remains a resource for coordinating your care. When calling for follow-up care, please make the office aware that this follow-up is from your recent emergency room visit. If for any reason you are refused follow-up, please contact the [facility] Emergency Department at and asked to speak to the emergency department charge nurse. [facility] [address] [place] [address] [facility] [address] [place] [address] Thank you for choosing the [facility] emergency department in [place] for your medical needs today. It was a pleasure caring for you. Today you were seen in the emergency department for back pain. 1. You have a urinary tract infection that will require antibiotics. Please avoid taking your Hydroxyzine while taking the Cipro (antibiotic) as it can cause adverse effects. Increase your fluids. 2. You can alternate Tylenol and ibuprofen as needed for pain and fever management. 3. We encourage you to follow up with your primary care provider next week for re-evaluation and further care/management. 4. If your symptoms should worsen, new symptoms develop or any of the signs and symptoms we discussed should arise please return to the emergency room or call 911 (if needed). Sepsis Event Note (ED) - Focused Exam Vital Signs: Vital Signs Temp Pulse Resp BP Pulse Ox 04/27/20 13:08 98.3 F 108 H 18 147/101 H 94 L - My Orders Last 24 Hours: My Active Orders 04/27/20 14:40 CULTURE URINE [RM] Stat - Assessment/Plan Last 24 Hours: My Active Orders 04/27/20 14:40 CULTURE URINE [RM] Stat
[2020-04-27] MEDS ORDERED: Sodium Chloride 0.9% 1,000 ML IV ONE (13:27)
[2020-04-27] MEDS ORDERED: Ketorolac 30 MG/ML SDV IVPUSH ONE (13:27)
[2020-04-27 15:11] LABS: BLOOD UREA NITROGEN,BUN 8 mg/dL (7.0-18.0); CARBON DIOXIDE,CO2 26.1 mmol/L (21.0-32.0); CHLORIDE,CL 102 mmol/L (98-107); GLUCOSE RANDOM 138 mg/dL (74-106); POTASSIUM,K 3.3 mmol/L (3.5-5.1); SODIUM,NA 138 mmol/L (136-145)
--- NOTE | 2020-04-27 15:39 | CT ---
Indication: Left flank pain for 3 days. Technique: Multiple contiguous axial images were obtained from the lung bases to the symphysis pubis without intravenous contrast enhancement. Please note that all CT scans at this facility use dose modulation, iterative reconstruction, and/or weight-based dosing when appropriate to reduce radiation dose to as low as reasonably achievable. Comparison: None Findings: The lung bases are clear. The heart is normal in size. No pericardial effusions identified. A small hiatal hernia is identified. The unenhanced liver, spleen, pancreas, and adrenal glands are normal. Postsurgical changes of cholecystectomy are identified. No intrahepatic biliary ductal dilatation is identified. In the pelvis, the uterus is normal. The urinary bladder is normal. No free air free fluid is identified within the abdomen or pelvis. The small and large bowel are normal in caliber. The appendix is normal in size. No lytic or blastic lesions of the spine are identified. A small fat containing umbilical hernia is identified. No hydronephrosis is identified. No renal/ureteral calculi identified. No hydroureter is identified. No calculi are identified within the urinary bladder. Impression: No acute findings of the abdomen or pelvis. Please note that all CT scans at this facility use dose modulation, iterative reconstruction, and/or weight-based dosing when appropriate to reduce radiation dose to as low as reasonably achievable. Dictated by Ann Casey MD @ Apr 27 2020 3:33PM Signed by Dr. Ann Casey @ Apr 27 2020 3:37PM
[2020-04-27] MEDS ORDERED: Morphine 2 MG/ML SYRINGE IVPUSH ONE (15:42)
[2020-04-27 18:31] VITALS: BP 123/84; PULSE 87
== END 2020-04-27 16:40 | disposition home or self-care (01) ==
LOC: MW.ED 13:00
DX: N12 Tubulo-interstitial nephritis, not specified as acute or chronic (principal); Z88.1 Allergy status to other antibiotic agents; Z88.0 Allergy status to penicillin; Z79.899 Other long term (current) drug therapy
CPT/HCPCS: 36415; 74176; 80053; 81001; 81025; 85025; 87086; 87480; 87510; 87660; 96374; 96375; 99284; J1885; J2270; J7030

== ENCOUNTER 2021-03-12 10:35 | Inpatient (IN) | payer BC ==
[~2021-03-12 10:35] MED LIST: Butorphanol 1 MG/ML SDV IVPUSH PRN; Carboprost Tromethamine 250 MCG/1 ML Amp IM PRN; Lactated Ringers 1,000 ML IV SCH; Lidocaine 1% 50 ML MDV INJECT PRN; Methylergonovine 0.2 MG/1 ML Amp IM PRN; Misoprostol 200 MCG Tab PO PRN; Nalbuphine 10 MG/1 ML Vial IVPUSH PRN; Oxytocin/0.9 % Sodium Chloride 30 UNIT/500 ML BAG IV SCH; Tranexamic Acid 1,000 MG in Sodium Chloride 0.9% 100 ML IV PRN; Water For Irrigation,Sterile 1,000 ML Container IRR PRN
[2021-03-12] MEDS ORDERED: Oxytocin/0.9 % Sodium Chloride 30 UNIT/500 ML BAG ONE (11:09)
[2021-03-12] MEDS ORDERED: Sodium Chloride 0.9% 20 ML SDV IV PRN (11:20)
[2021-03-12] MEDS ORDERED: Sodium Chloride 0.9% 10 ML Syringe FLUSH PRN (11:20)
[2021-03-12] MEDS ORDERED: Sodium Chloride 0.9% 2.5 ML Syringe FLUSH PRN (11:20)
[2021-03-12] MEDS ORDERED: Docusate Sodium 100 MG Cap PO PRN (11:36)
[2021-03-12] MEDS ORDERED: Ibuprofen 800 MG Tab PO PRN (11:36)
[2021-03-12] MEDS ORDERED: Witch Hazel Medicated Pads 40/Jar TOP PRN (11:36)
[2021-03-12] MEDS ORDERED: Bisacodyl 10 MG Supp RECTAL PRN (11:36)
[2021-03-12] MEDS ORDERED: Benzocaine/Menthol 20%-0.5% Spray 78 GM Cannister TOP PRN (11:36)
[2021-03-12] MEDS ORDERED: Lanolin 100% Cream 7 GM Tube TOP PRN (11:36)
--- NOTE | 2021-03-12 11:42 | PCM.DEL ---
L & D Note - General Info Date of Service: 03/12/21 Mother's Due Date: 03/31/21 - Delivery Note Labor: Spontaneous Delivery Outcome: Livebirth Infant Delivery Method: Spontaneous Vaginal Delivery-Single (vaginal after ) Presentation: Vertex Nuchal Cord: None Anesthesia Type: None Amniotic Fluid Description: Clear Episiotomy Type: None Laceration: 1st Degree (not repaired, hemostatic) Placenta: Intact, Spontaneous Cord: 3 Vessels Estimated Blood Loss: 300 Resuscitation Needed: No : Suctioned, Stimulated Score 1 min: 7 Score 5 min: 8 Delivery Comments (Free Text/Narrative):: Live male , weight pending - General Info Date of Service: 03/12/21 - Patient Data Lab Results Last 24 Hours: Laboratory Results - last 24 hr 03/12/21 Range/Units 11:05 POC Glucose 94 (70-99) mg/dL Med Orders - Current: Current Medications Butorphanol Tartrate (Butorphanol 1 Mg/Ml Sdv) 1 mg IVPUSH Q1H PRN PRN Reason: Pain (severe 7-10) Carboprost Tromethamine (Carboprost Tromethamine 250 Mcg/1 Ml Amp) 250 mcg IM ASDIRECTED PRN PRN Reason: Post Hemorrhage Lactated Ringer's (Ringers, Lactated) 1,000 mls @ 150 mls/hr IV ASDIRECTED EDGARD Oxytocin/Sodium Chloride (Oxytocin 30 Unit In Ns 0.9% 500 Ml Premix) 30 unit in 500 mls @ 500 mls/hr IV TITRATE EDGARD Tranexamic Acid 1,000 mg/ (Sodium Chloride) 110 mls @ 660 mls/hr IV ONETIME PRN PRN Reason: Bleeding Lidocaine HCl (Lidocaine 1% 50 Ml Mdv) 50 ml INJECT ONETIME PRN PRN Reason: Laceration repair Methylergonovine Maleate (Methylergonovine 0.2 Mg/1 Ml Amp) 0.2 mg IM ASDIRECTED PRN PRN Reason: Post Hemorrhage Misoprostol (Misoprostol 200 Mcg Tab) 200 mcg PO ONETIME PRN PRN Reason: Post Hemorrhage Nalbuphine HCl (Nalbuphine 10 Mg/1 Ml Vial) 10 mg IVPUSH Q1H PRN PRN Reason: Pain (severe 7-10) Sodium Chloride (Sodium Chloride 0.9% 10 Ml Syringe) 10 ml FLUSH ASDIRECTED PRN PRN Reason: Keep Vein Open Sodium Chloride (Sodium Chloride 0.9% 2.5 Ml Syringe) 2.5 ml FLUSH ASDIRECTED PRN PRN Reason: Keep Vein Open Sodium Chloride (Sodium Chloride 0.9% 20 Ml Sdv) 10 ml IV ASDIRECTED PRN PRN Reason: IV Use Sterile Water (Water For Irrigation,Sterile 1,000 Ml Container) 1,000 ml IRR ASDIRECTED PRN PRN Reason: delivery Discontinued Medications Oxytocin/Sodium Chloride (Oxytocin 30 Unit In Ns 0.9% 500 Ml Premix) Confirm Administered Dose 30 unit in 500 mls @ as directed .ROUTE .STK-MED ONE Stop: 03/12/21 11:10 - Problem List & Annotations (1) Gestational diabetes mellitus in , diet controlled SNOMED Code(s): 40152122, 403273817, 644452236 Code(s): O24.410 - GESTATIONAL DIABETES MELLITUS IN , DIET CONTR OLLED Status: Acute Current Visit: Yes (2) Intrahepatic cholestasis of SNOMED Code(s): 029513108 Code(s): O26.619 - LIVER AND BILIARY TRACT DISORD IN , UNSP TRIMESTER; K83.1 - OBSTRUCTION OF BILE DUCT Status: Acute Current Visit: Yes (3) COVID-19 affecting , antepartum SNOMED Code(s): 106283061, 157935478 Code(s): O98.519 - OTHER VIRAL DISEASES COMPLICATING , UNSP TRIMESTER; U07.1 - COVID-19 Status: Acute Current Visit: Yes (4) , delivered, current hospitalization SNOMED Code(s): 535444357 Code(s): O34.219 - MATERNAL CARE FOR UNSP TYPE SCAR FROM PREVIOUS DEL Status: Acute Priority: Medium Current Visit: No - Problem List Review Problem List Initiated/Reviewed/Updated: Yes - My Orders Last 24 Hours: My Active Orders 03/12/21 10:35 Patient Status [ADT] Routine Heart Tones [RC] CONTINUOUS Non Stress Test [RC] PER UNIT ROUTINE May Shower [RC] ASDIRECTED Notify Provider [RC] PRN Up ad Ashli [RC] ASDIRECTED Vaginal Exam [RC] PRN Vital Signs [RC] PER UNIT ROUTINE Butorphanol [Stadol] 1 mg IVPUSH Q1H PRN Carboprost Tromethamine [Hemabate DS] 250 mcg IM ASDIRECTED PRN Lactated Ringers [Ringers, Lactated] 1,000 ml IV ASDIRECTED Lidocaine 1% [Xylocaine 1%] 50 ml INJECT ONETIME PRN Methylergonovine [Methergine] 0.2 mg IM ASDIRECTED PRN Nalbuphine [Nubain] 10 mg IVPUSH Q1H PRN Oxytocin/0.9 % Sodium Chloride [Oxytocin 30 Unit in NS 0.9% 500 ML Premix] 30 unit in 500 ml IV TITRATE Tranexamic Acid [Cyklokapron] 1,000 mg Sodium Chloride 0.9% [Normal Saline] 100 ml IV ONETIME Water For Irrigation,Sterile [Sterile Water for Irrigation] 1,000 ml IRR ASDIRECTED PRN miSOPROStoL [Cytotec] 200 mcg PO ONETIME PRN Scalp Electrode [WOMSER] Per Unit Routine Peripheral IV Insertion Adult [OM.PC] Routine 03/12/21 Lunch Regular Diet [DIET] 03/12/21 11:20 CBC W/O DIFF,HEMOGRAM [HEME] Routine COMPREHENSIVE METABOLIC PN,CMP [CHEM] Routine RPR (SYPHILIS SERO) W/ RFLX [REF] Routine TYPE AND SCREEN [BBK] Routine Sodium Chloride 0.9% [Normal Saline] 10 ml IV ASDIRECTED PRN Sodium Chloride 0.9% [Saline Flush] 10 ml FLUSH ASDIRECTED PRN Sodium Chloride 0.9% [Saline Flush] 2.5 ml FLUSH ASDIRECTED PRN Resuscitation Status Routine 03/12/21 11:36 Patient Status [ADT] Routine May Shower [RC] ASDIRECTED Notify Provider Vital Signs [RC] ASDIRECTED Up ad Ashli [RC] ASDIRECTED Vital Signs [RC] PER UNIT ROUTINE Acetaminophen [Tylenol Extra Strength] 1,000 mg PO Q6H PRN Benzocaine/Menthol [Dermoplast Pain Relief 20%-0.5% [place]] 78 gm TOP ASDIRECTED PRN Docusate Sodium [Colace] 100 mg PO Q12H PRN Ibuprofen [Motrin] 800 mg PO Q8H PRN Lanolin [Lansinoh HPA] See Dose Instructions TOP ASDIRECTED PRN bisacodyL [Dulcolax] 10 mg RECTAL ONETIME PRN oxyCODONE 5 mg PO Q2H PRN magnus [place]ee [Tucks] 1 pad TOP ASDIRECTED PRN Assess Lochia [WOMSER] Per Unit Routine Assess Uterine Involution [WOMSER] Per Unit Routine Breast Pump [WOMSER] Per Unit Routine Ice Therapy [OM.PC] Per Unit Routine Perineal Care [OM.PC] Per Unit Routine Peripheral IV Discontinue [OM.PC] Routine Sitz Bath [OM.PC] Per Unit Routine 03/12/21 11:37 Cooling Warming Measures [RC] ASDIRECTED 03/12/21 21:00 FLUoxetine [PROzac] 40 mg PO BEDTIME 03/13/21 05:11 HEMOGLOBIN/HEMATOCRIT,HH [HEME] Timed - Assessment Assessment:: 30yo s/p at 37w2d - Plan Plan:: -Admit to unit for cares. -GDMA1 - 2-hour GTT , do not need to monitor blood sugars on unit. -Intrahepatic cholestasis of - Do not need to continue Ursodiol. -COVID in second trimester -Elevated blood pressures prior to delivery - history of gestational hypertension in prior pregnancies, BP have been normal until today, will continue to monitor and begin treatment if indicated, labs pending -O+, rubella immune, GBS negative
[2021-03-12 12:20] LABS: BLOOD UREA NITROGEN,BUN 11 mg/dL (7.0-18.0); CARBON DIOXIDE,CO2 20.8 mmol/L (21.0-32.0); CHLORIDE,CL 104 mmol/L (98-107); GLUCOSE RANDOM 100 mg/dL (74-106); SODIUM,NA 140 mmol/L (136-145)
[2021-03-12] MEDS ORDERED: Labetalol 100 MG/20 ML MDV IVPUSH ONE (12:36)
[2021-03-12] MEDS ORDERED: Magnesium Sulfate/Water 4 GM/100 ML BAG IV ONE (12:38)
[2021-03-12] MEDS ORDERED: Calcium Gluconate 10% 1 GM/10 ML SDV IV PRN (12:41)
[2021-03-12] MEDS ORDERED: Magnesium Sulfate/Water 20 GM/500 ML BAG IV SCH (12:45)
[2021-03-12] MEDS ORDERED: Morphine 2 MG/ML SYRINGE ONE (13:15)
[2021-03-12] MEDS ORDERED: Misoprostol 200 MCG Tab ONE (13:24)
[2021-03-12] MEDS ORDERED: Ondansetron 4 MG/2 ML SDV ONE (13:49)
[2021-03-12] MEDS ORDERED: Ondansetron 4 MG/2 ML SDV IVPUSH PRN (13:52)
--- NOTE | 2021-03-12 13:57 | PCM.SN.2 ---
- Free Text/Narrative Note: Initially called by RN regarding patient's blood pressures, multiple >160/110. Order given for Labetalol and to start Magnesium for seizure prophylaxis. While awaiting medication, patient began having bleeding. Called again by RN regarding heavy vaginal bleeding and clots. BP had decreased to 130s/80s. Order given for 1g TXA. I arrived to the room with multiple clots on patient pad. 2mg IV Morphine given for pain control. Bimanual exam performed, roughly 1000cc clot evacuated from uterus. Lower uterine segment intact but atonic - tone increased with massage. 1000mcg Misoprostol placed per rectum. At this time, patient BP down to 70/40s. Order given for stat CBC, PT/INR, PTT, and Fibrinogen. Order held for Labetalol and Magnesium. Second IV inserted by RN. Over the next 10 minutes, BP increased to 110s/90s. Patient reporting cramping, but no longer having severe pain. Fundus and lower uterine segment have remained firm with minimal subsequent bleeding. Additional CBC ordered for 1530 today. Will monitor BP and bleeding on L&D for the afternoon, then determine if Magnesium will be initiated. At this time I do not want to start a Magnesium bolus and further decrease BP. Patient alert with nausea, but states she is feeling better. Will monitor closely. Pads to be weighed, estimate minimum 1500cc EBL.
[2021-03-12] MEDS: oxyCODONE 5 MG Tab PO PRN ×3 (15:33→22:48)
--- NOTE | 2021-03-12 16:10 | OR ---
SURGEON: Katherine Ray MD DATE OF PROCEDURE: 03/12/2021 PREOPERATIVE DIAGNOSES: 1. 30-year-old, G5, P4-0-0-4, at 37 weeks and 2 days' gestation. 2. Spontaneous rupture of membranes, in labor. 3. Gestational diabetes, diet controlled. 4. Intrahepatic cholestasis. 5. History of COVID infection during . 6. Depression and anxiety, on Fluoxetine. 7. Elevated blood pressure prior to delivery. 8. Group B streptococcus negative. POSTOPERATIVE DIAGNOSES: 1. 30-year-old, G5, P4-0-0-4, at 37 weeks and 2 days' gestation. 2. Spontaneous rupture of membranes, in labor. 3. Gestational diabetes, diet controlled. 4. Intrahepatic cholestasis. 5. History of COVID infection during . 6. Depression and anxiety, on Fluoxetine. 7. Elevated blood pressure prior to delivery. 8. Group B streptococcus negative. PROCEDURE: Vaginal after delivery. PRIMARY SURGEON: Katherine Ray MD ANESTHESIA: None. ESTIMATED BLOOD LOSS: 300 mL. FINDINGS: Live male in cephalic presentation. scores of 7 and 9 at one and five minutes respectively. Weight pending. Terminal meconium. Placenta intact with three-vessel cord, sent to Pathology. First-degree perineal laceration, hemostatic without repair. DESCRIPTION OF PROCEDURE: This is a 30-year-old, G5, P4-0-0-4, with history of multiple complications during this . During the second trimester, she was diagnosed with COVID infection. However, this was not severe. She subsequently had suspected premature rupture of membranes and vaginal bleeding and received betamethasone for lung maturity. After today's monitoring with a stable amniotic fluid level, she was discharged to home from the tertiary care center. She underwent a glucose tolerance test and was diagnosed with gestational diabetes. This was controlled with diet throughout the remainder of . At approximately 33 to 34 weeks , she was diagnosed with intrahepatic cholestasis of and was started on ursodiol with increase in her bile acids with treatment. She was monitored weekly with biophysical profiles. On day of procedure, the patient presented in active labor with spontaneous rupture of membranes. She was found to be 7 to 8 cm dilated upon presentation. She quickly had complete cervical dilation while I was in the room. Over the next three contractions, the patient pushed and delivered a live male infant. Head was delivered followed quickly by the shoulders and remainder of the body. The was placed on the maternal abdomen. After approximately 60 seconds, the cord was clamped and cut. Cord blood was obtained. The placenta then delivered intact and three-vessel cord via the Morillo-Landa maneuver. The perineum was inspected and a first- degree perineal laceration was noted. This was hemostatic without repair. The fundus was firm and below the umbilicus with minimal bleeding. Patient and infant tolerated the delivery well. Her blood pressures will be monitored , as they were elevated during contractions and pushing. [id number] / MODL /[id number] MTDD
--- NOTE | 2021-03-12 16:57 | PCM.SN.2 ---
- Free Text/Narrative Note: Patient has had light bleeding since last exam. BP 110-120s/80-90s. While I was in the room, patient ambulated and voided, denies dizziness. QBL 1700 from delivery and hemorrhage. Hemoglobin at time of hemorrhage stable, along with DIC labs. Will repeat CBC at 1900. Monitor patient on L&D until that CBC resulted. Will space out BP checks, continue to hold magnesium. Will sign out care to Dr. Greenberg overnight.
[2021-03-12] MEDS: Acetaminophen 500 MG Tab PO PRN (18:27)
[2021-03-12] MEDS ORDERED: FLUoxetine 20 MG Cap PO SCH (21:00)
[2021-03-13] MEDS: Acetaminophen 500 MG Tab PO PRN ×2 (04:30→10:33)
--- NOTE | 2021-03-13 08:39 | PCM.PNPP ---
- General Info Date of Service: 03/13/21 Subjective Update: Patient doing well this morning. Bleeding scant. Pain much better than yesterday, having cramps. Denies dizziness with ambulation. Denies preeclampsia symptoms. Functional Status: Reports: Pain Controlled, Tolerating Diet, Ambulating, U rinating - Review of Systems General: Reports: No Symptoms HEENT: Reports: No Symptoms Pulmonary: Reports: No Symptoms Cardiovascular: Reports: No Symptoms Gastrointestinal: Reports: No Symptoms Genitourinary: Reports: No Symptoms Musculoskeletal: Reports: No Symptoms Skin: Reports: No Symptoms Neurological: Reports: No Symptoms Psychiatric: Reports: No Symptoms - Patient Data Vital Signs - Most Recent: Last Vital Signs Temp 36.2 C 03/13/21 04:00 Pulse 75 03/13/21 04:00 Resp 16 03/13/21 04:00 BP 127/88 03/13/21 04:00 Pulse Ox 97 03/13/21 04:00 Weight - Most Recent: 87.543 kg Lab Results - Last 24 Hours: Laboratory Results - last 24 hr 03/12/21 03/12/21 03/12/21 Range/Units 11:00 11:00 11:00 WBC 6.74 (4.0-11.0) K/uL RBC 4.11 L (4.30-5.90) M/uL Hgb 12.8 (12.0-16.0) g/dL Hct 37.4 (36.0-46.0) % MCV 91.0 (80.0-98.0) fL MCH 31.1 (27.0-32.0) pg MCHC 34.2 (31.0-37.0) g/dL RDW Std Deviation 46.1 (28.0-62.0) fl RDW Coeff of [place] 14 (11.0-15.0) % Plt Count 127 L (150-400) K/uL MPV (7.40-12.00) fL Nucleated RBC % 0.0 /100WBC Nucleated RBCs # 0 K/uL INR APTT (18.6-31.3) SEC Fibrinogen (215-411) mg/dL Sodium 140 (136-145) mmol/L Potassium 4.0 (3.5-5.1) mmol/L Chloride 104 (98-107) mmol/L Carbon Dioxide 20.8 L (21.0-32.0) mmol/L BUN 11 (7.0-18.0) mg/dL Creatinine 0.8 (0.6-1.0) mg/dL Est Cr Clr Drug Dosing 87.18 mL/min Estimated GFR (MDRD) > 60.0 ml/min Glucose 100 (74-106) mg/dL POC Glucose (70-99) mg/dL Uric Acid (2.6-7.2) mg/dL Calcium 8.8 (8.5-10.1) mg/dL Total Bilirubin 0.3 (0.2-1.0) mg/dL AST 18 (15-37) IU/L ALT 15 (14-63) IU/L Alkaline Phosphatase 169 H (46-116) U/L Total Protein 6.6 (6.4-8.2) g/dL Albumin 2.1 L (3.4-5.0) g/dL Globulin 4.5 H (2.6-4.0) g/dL Albumin/Globulin Ratio 0.5 L (0.9-1.6) Blood Type O POSITIVE Antibody Screen NEGATIVE 03/12/21 03/12/21 03/12/21 Range/Units 11:00 11:05 13:48 WBC 14.65 H (4.0-11.0) K/uL RBC 3.61 L (4.30-5.90) M/uL Hgb 11.2 L (12.0-16.0) g/dL Hct 33.0 L (36.0-46.0) % MCV 91.4 (80.0-98.0) fL MCH 31.0 (27.0-32.0) pg MCHC 33.9 (31.0-37.0) g/dL RDW Std Deviation 46.1 (28.0-62.0) fl RDW Coeff of [place] 14 (11.0-15.0) % Plt Count 154 (150-400) K/uL MPV 14.50 H (7.40-12.00) fL Nucleated RBC % 0.0 /100WBC Nucleated RBCs # 0 K/uL INR APTT (18.6-31.3) SEC Fibrinogen (215-411) mg/dL Sodium (136-145) mmol/L Potassium (3.5-5.1) mmol/L Chloride (98-107) mmol/L Carbon Dioxide (21.0-32.0) mmol/L BUN (7.0-18.0) mg/dL Creatinine (0.6-1.0) mg/dL Est Cr Clr Drug Dosing mL/min Estimated GFR (MDRD) ml/min Glucose (74-106) mg/dL POC Glucose 94 (70-99) mg/dL Uric Acid 5.6 (2.6-7.2) mg/dL Calcium (8.5-10.1) mg/dL Total Bilirubin (0.2-1.0) mg/dL AST (15-37) IU/L ALT (14-63) IU/L Alkaline Phosphatase (46-116) U/L Total Protein (6.4-8.2) g/dL Albumin (3.4-5.0) g/dL Globulin (2.6-4.0) g/dL Albumin/Globulin Ratio (0.9-1.6) Blood Type Antibody Screen 03/12/21 03/12/21 03/13/21 Range/Units 13:48 19:40 04:57 WBC 19.09 H (4.0-11.0) K/uL RBC 3.36 L (4.30-5.90) M/uL Hgb 10.4 L 9.1 L (12.0-16.0) g/dL Hct 30.4 L 26.4 L (36.0-46.0) % MCV 90.5 (80.0-98.0) fL MCH 31.0 (27.0-32.0) pg MCHC 34.2 (31.0-37.0) g/dL RDW Std Deviation 45.8 (28.0-62.0) fl RDW Coeff of [place] 14 (11.0-15.0) % Plt Count 182 (150-400) K/uL MPV (7.40-12.00) fL Nucleated RBC % 0.0 /100WBC Nucleated RBCs # 0 K/uL INR 0.94 APTT 24.7 (18.6-31.3) SEC Fibrinogen 396 (215-411) mg/dL Sodium (136-145) mmol/L Potassium (3.5-5.1) mmol/L Chloride (98-107) mmol/L Carbon Dioxide (21.0-32.0) mmol/L BUN (7.0-18.0) mg/dL Creatinine (0.6-1.0) mg/dL Est Cr Clr Drug Dosing mL/min Estimated GFR (MDRD) ml/min Glucose (74-106) mg/dL POC Glucose (70-99) mg/dL Uric Acid (2.6-7.2) mg/dL Calcium (8.5-10.1) mg/dL Total Bilirubin (0.2-1.0) mg/dL AST (15-37) IU/L ALT (14-63) IU/L Alkaline Phosphatase (46-116) U/L Total Protein (6.4-8.2) g/dL Albumin (3.4-5.0) g/dL Globulin (2.6-4.0) g/dL Albumin/Globulin Ratio (0.9-1.6) Blood Type Antibody Screen Med Orders - Current: Current Medications Acetaminophen (Acetaminophen 500 Mg Tab) 1,000 mg PO Q6H PRN PRN Reason: Pain (mild 1-3) Last Admin: 03/13/21 04:30 Dose: 1,000 mg Documented by: Benzocaine/Menthol (Benzocaine/Menthol 20%-0.5% [place] 78 Gm Cannister) 78 gm TOP ASDIRECTED PRN PRN Reason: Perineal Comfort Measure Last Admin: 03/12/21 14:07 Dose: 1 canister Documented by: Bisacodyl (Bisacodyl 10 Mg Supp) 10 mg RECTAL ONETIME PRN PRN Reason: Constipation Butorphanol Tartrate (Butorphanol 1 Mg/Ml Sdv) 1 mg IVPUSH Q1H PRN PRN Reason: Pain (severe 7-10) Calcium Gluconate (Calcium Gluconate 10% 1 Gm/10 Ml Sdv) 1 gm IV ASDIRECTED PRN PRN Reason: respiratory distress Carboprost Tromethamine (Carboprost Tromethamine 250 Mcg/1 Ml Amp) 250 mcg IM ASDIRECTED PRN PRN Reason: Post Hemorrhage Docusate Sodium (Docusate Sodium 100 Mg Cap) 100 mg PO Q12H PRN PRN Reason: Constipation Emollient Ointment (Lanolin 100% Cream 7 Gm Tube) 0 gm TOP ASDIRECTED PRN PRN Reason: Sore Nipples Fluoxetine HCl (Fluoxetine 20 Mg Cap) 40 mg PO BEDTIME EDGARD Last Admin: 03/12/21 21:45 Dose: 40 mg Documented by: Lactated Ringer's (Ringers, Lactated) 1,000 mls @ 150 mls/hr IV ASDIRECTED EDGARD Oxytocin/Sodium Chloride (Oxytocin 30 Unit In Ns 0.9% 500 Ml Premix) 30 unit in 500 mls @ 500 mls/hr IV TITRATE EDGARD Last Admin: 03/12/21 11:20 Dose: 500 mls/hr Documented by: Tranexamic Acid 1,000 mg/ (Sodium Chloride) 110 mls @ 660 mls/hr IV ONETIME PRN PRN Reason: Bleeding Last Admin: 03/12/21 13:22 Dose: 660 mls/hr Documented by: Magnesium Sulfate (Magnesium Sulfate In Water 20 Gm/500 Ml) 20 gm in 500 mls @ 50 mls/hr IV ASDIRECTED EDGARD; Protocol Ibuprofen (Ibuprofen 800 Mg Tab) 800 mg PO Q8H PRN PRN Reason: Cramping Last Admin: 03/12/21 14:06 Dose: 800 mg Documented by: Lidocaine HCl (Lidocaine 1% 50 Ml Mdv) 50 ml INJECT ONETIME PRN PRN Reason: Laceration repair Methylergonovine Maleate (Methylergonovine 0.2 Mg/1 Ml Amp) 0.2 mg IM ASDIRECTED PRN PRN Reason: Post Hemorrhage Misoprostol (Misoprostol 200 Mcg Tab) 200 mcg PO ONETIME PRN PRN Reason: Post Hemorrhage Last Admin: 03/12/21 13:25 Dose: 1,000 mcg Documented by: Nalbuphine HCl (Nalbuphine 10 Mg/1 Ml Vial) 10 mg IVPUSH Q1H PRN PRN Reason: Pain (severe 7-10) Ondansetron HCl (Ondansetron 4 Mg/2 Ml Sdv) 4 mg IVPUSH Q4H PRN PRN Reason: Nausea/Vomiting Oxycodone HCl (Oxycodone 5 Mg Tab) 5 mg PO Q2H PRN PRN Reason: Pain (severe 7-10) Last Admin: 03/12/21 22:48 Dose: 5 mg Documented by: Sodium Chloride (Sodium Chloride 0.9% 10 Ml Syringe) 10 ml FLUSH ASDIRECTED PRN PRN Reason: Keep Vein Open Sodium Chloride (Sodium Chloride 0.9% 2.5 Ml Syringe) 2.5 ml FLUSH ASDIRECTED PRN PRN Reason: Keep Vein Open Sodium Chloride (Sodium Chloride 0.9% 20 Ml Sdv) 10 ml IV ASDIRECTED PRN PRN Reason: IV Use Sterile Water (Water For Irrigation,Sterile 1,000 Ml Container) 1,000 ml IRR ASDIRECTED PRN PRN Reason: delivery Witch Abi (Witch Abi Medicated Pads 40/Jar) 1 pad TOP ASDIRECTED PRN PRN Reason: comfort care Last Admin: 03/12/21 14:07 Dose: 1 tub Documented by: Discontinued Medications Oxytocin/Sodium Chloride (Oxytocin 30 Unit In Ns 0.9% 500 Ml Premix) Confirm Administered Dose 30 unit in 500 mls @ as directed .ROUTE .STK-MED ONE Stop: 03/12/21 11:10 Magnesium Sulfate (Magnesium Sulfate In Water 4 Gm/100 Ml) 4 gm in 100 mls @ 200 mls/hr IV BOLUS ONE Stop: 03/12/21 13:07 Labetalol HCl (Labetalol 100 Mg/20 Ml Mdv) 20 mg IVPUSH ONETIME ONE; Protocol Stop: 03/12/21 12:37 Misoprostol (Misoprostol 200 Mcg Tab) Confirm Administered Dose 800 mcg .ROUTE .STK-MED ONE Stop: 03/12/21 13:25 Morphine Sulfate (Morphine 2 Mg/Ml Syringe) Confirm Administered Dose 2 mg .ROUTE .STK-MED ONE Stop: 03/12/21 13:16 Last Admin: 03/12/21 13:23 Dose: 2 mg Documented by: Ondansetron HCl (Ondansetron 4 Mg/2 Ml Sdv) Confirm Administered Dose 4 mg .ROUTE .STK-MED ONE Stop: 03/12/21 13:50 Last Admin: 03/12/21 13:56 Dose: 4 mg Documented by: Tranexamic Acid (Tranexamic Acid 1,000 Mg/10 Ml Amp) Confirm Administered Dose 1,000 mg .ROUTE .STK-MED ONE Stop: 03/12/21 13:12 - Infant Interaction Infant Disposition, : [place] to Nursery Feeding: Bottle Fed Infant Support Person: - Recovery Exam Fundal Tone: Firm Fundal Level: 1 Fingerbreadths Below Umbilicus Fundal Placement: Midline Lochia Amount: Scant Lochia Color: Rubra/Red Other Perinuem Description: first degree laceration, not sutured. Bladder Status: Voiding Urinary Elimination: Voided - Exam General: Alert, Oriented Neck: Supple Lungs: Normal Respiratory Effort GI/Abdominal Exam: Soft, Non-Tender, No Distention Extremities: Non-Tender, No Pedal Edema Skin: Warm, Dry, Intact Neurological: No New Focal Deficit Psy/Mental Status: Alert, Normal Affect, Normal Mood - Problem List & Annotations (1) Gestational diabetes mellitus in , diet controlled SNOMED Code(s): 48798166, 733887954, 446549590 Code(s): O24.410 - GESTATIONAL DIABETES MELLITUS IN , DIET CONTROLLED Status: Acute Current Visit: Yes (2) Intrahepatic cholestasis of SNOMED Code(s): 308700488 Code(s): O26.619 - LIVER AND BILIARY TRACT DISORD IN , UNSP T RIMESTER; K83.1 - OBSTRUCTION OF BILE DUCT Status: Acute Current Visit: Yes (3) COVID-19 affecting , antepartum SNOMED Code(s): 702194641, 116788698 Code(s): O98.519 - OTHER VIRAL DISEASES COMPLICATING , UNSP TRIMESTER; U07.1 - COVID-19 Status: Acute Current Visit: Yes (4) , delivered, current hospitalization SNOMED Code(s): 280204284 Code(s): O34.219 - MATERNAL CARE FOR UNSP TYPE SCAR FROM PREVIOUS DEL Status: Acute Priority: Medium Current Visit: No (5) hemorrhage SNOMED Code(s): 40207865 Code(s): O72.1 - OTHER IMMEDIATE HEMORRHAGE Status: Acute Current Visit: Yes - Problem List Review Problem List Initiated/Reviewed/Updated: Yes - My Orders Last 24 Hours: My Active Orders 03/12/21 10:35 Patient Status [ADT] Routine May Shower [RC] ASDIRECTED Notify Provider [RC] PRN Up ad Ashli [RC] ASDIRECTED Vital Signs [RC] PER UNIT ROUTINE Butorphanol [Stadol] 1 mg IVPUSH Q1H PRN Carboprost Tromethamine [Hemabate DS] 250 mcg IM ASDIRECTED PRN Lactated Ringers [Ringers, Lactated] 1,000 ml IV ASDIRECTED Lidocaine 1% [Xylocaine 1%] 50 ml INJECT ONETIME PRN Methylergonovine [Methergine] 0.2 mg IM ASDIRECTED PRN Nalbuphine [Nubain] 10 mg IVPUSH Q1H PRN Oxytocin/0.9 % Sodium Chloride [Oxytocin 30 Unit in NS 0.9% 500 ML Premix] 30 unit in 500 ml IV TITRATE Tranexamic Acid [Cyklokapron] 1,000 mg Sodium Chloride 0.9% [Normal Saline] 100 ml IV ONETIME Water For Irrigation,Sterile [Sterile Water for Irrigation] 1,000 ml IRR ASDIRECTED PRN miSOPROStoL [Cytotec] 200 mcg PO ONETIME PRN Scalp Electrode [WOMSER] Per Unit Routine Peripheral IV Insertion Adult [OM.PC] Routine 03/12/21 Lunch Regular Diet [DIET] RPR (SYPHILIS SERO) W/ RFLX [REF] Routine 03/12/21 11:20 Sodium Chloride 0.9% [Normal Saline] 10 ml IV ASDIRECTED PRN Sodium Chloride 0.9% [Saline Flush] 10 ml FLUSH ASDIRECTED PRN Sodium Chloride 0.9% [Saline Flush] 2.5 ml FLUSH ASDIRECTED PRN Resuscitation Status Routine 03/12/21 11:36 Patient Status [ADT] Routine May Shower [RC] ASDIRECTED Notify Provider Vital Signs [RC] ASDIRECTED Up ad Ashli [RC] ASDIRECTED Vital Signs [RC] PER UNIT ROUTINE Acetaminophen [Tylenol Extra Strength] 1,000 mg PO Q6H PRN Benzocaine/Menthol [Dermoplast Pain Relief 20%-0.5% [place]] 78 gm TOP ASDIRECTED PRN Docusate Sodium [Colace] 100 mg PO Q12H PRN Ibuprofen [Motrin] 800 mg PO Q8H PRN Lanolin [Lansinoh HPA] See Dose Instructions TOP ASDIRECTED PRN bisacodyL [Dulcolax] 10 mg RECTAL ONETIME PRN oxyCODONE 5 mg PO Q2H PRN witch Abi [Tucks] 1 pad TOP ASDIRECTED PRN Assess Lochia [WOMSER] Per Unit Routine Assess Uterine Involution [WOMSER] Per Unit Routine Breast Pump [WOMSER] Per Unit Routine Ice Therapy [OM.PC] Per Unit Routine Perineal Care [OM.PC] Per Unit Routine Peripheral IV Discontinue [OM.PC] Routine Sitz Bath [OM.PC] Per Unit Routine 03/12/21 11:37 Cooling Warming Measures [RC] ASDIRECTED 03/12/21 12:41 Bedrest [RC] ASDIRECTED Communication Order [RC] PRN Communication Order [RC] PRN Height and Weight [RC] DAILY Intake and Output [RC] QSHIFT Notify Provider [RC] PRN Oxygen Therapy [RC] PRN Calcium Gluconate 1 gm IV ASDIRECTED PRN 03/12/21 12:42 Equipment to Bedside [RC] PRN 03/12/21 12:43 Notify Provider Status Change [RC] ASDIRECTED 03/12/21 12:45 Magnesium Sulfate/Water [Magnesium Sulfate in Water 20 GM/500 ML] 20 gm in 500 ml IV ASDIRECTED Deep Tendon Reflexes [WOMSER] Q1H 03/12/21 13:45 Deep Tendon Reflexes [WOMSER] Q1H 03/12/21 13:52 Ondansetron [Zofran] 4 mg IVPUSH Q4H PRN 03/12/21 14:45 Deep Tendon Reflexes [WOMSER] Q1H 03/12/21 15:45 Deep Tendon Reflexes [WOMSER] Q1H 03/12/21 16:45 Deep Tendon Reflexes [WOMSER] Q1H 03/12/21 17:45 Deep Tendon Reflexes [WOMSER] Q1H 03/12/21 18:45 Deep Tendon Reflexes [WOMSER] Q1H 03/12/21 19:45 Deep Tendon Reflexes [WOMSER] Q1 03/12/21 20:45 Deep Tendon Reflexes [WOMSER] Q1H 03/12/21 21:00 FLUoxetine [PROzac] 40 mg PO BEDTIME 03/12/21 21:45 Deep Tendon Reflexes [WOMSER] Q1H 03/12/21 22:45 Deep Tendon Reflexes [WOMSER] Q1H 03/12/21 23:45 Deep Tendon Reflexes [WOMSER] Q1H 03/13/21 00:45 Deep Tendon Reflexes [WOMSER] Q1H 03/13/21 01:45 Deep Tendon Reflexes [WOMSER] Q1 03/13/21 02:45 Deep Tendon Reflexes [WOMSER] Q1H 03/13/21 03:45 Deep Tendon Reflexes [WOMSER] Q1H 03/13/21 04:45 Deep Tendon Reflexes [WOMSER] Q1H 03/13/21 05:45 Deep Tendon Reflexes [WOMSER] Q1H 03/13/21 06:45 Deep Tendon Reflexes [WOMSER] Q1H 03/13/21 07:45 Deep Tendon Reflexes [WOMSER] Q1H 03/13/21 08:45 Deep Tendon Reflexes [WOMSER] Q103/13/21 09:45 Deep Tendon Reflexes [WOMSER] Q1H 03/13/21 10:45 Deep Tendon Reflexes [WOMSER] Q1H 03/13/21 11:45 Deep Tendon Reflexes [WOMSER] Q1H - Assessment Assessment:: 30yo s/p at 37w2d, PPD#1 - Plan Plan:: -Continue cares. - hemorrhage - Hemoglobin has been stable, bleeding scant, vital signs normal. -GDMA1 - 2-hour GTT , do not need to monitor blood sugars on unit. -Intrahepatic cholestasis of - Do not need to continue Ursodiol. -COVID in second trimester -Gestational hypertension - Continue to monitor BP. -O+, rubella immune, GBS negative -Patient desires discharge home today. Reviewed discharge instructions/precautions. All questions answered.
[2021-03-13] MEDS: oxyCODONE 5 MG Tab PO PRN (10:32)
[2021-03-13 19:08] VITALS: BP 136/63; PULSE 83
== END 2021-03-13 14:35 | disposition home or self-care (01) | DRG 560 ==
LOC: MW.OBCHECK 10:35 → MW.OB 10:36 → MW.OBCHECK 11:27 → OBSVTOIN 11:36 → MW.OB 21:13
PROVIDERS: ADMIT Obstetrics & Gynecology; ATTEND Obstetrics & Gynecology
PROC: 10E0XZZ Delivery of Products of Conception, External Approach (ICD-10-PCS; principal; 2021-03-12)
PROC: 0HQ9XZZ Repair Perineum Skin, External Approach (ICD-10-PCS; 2021-03-12)
DX: O24.420 Gestational diabetes mellitus in childbirth, diet controlled (principal); Z37.0 Single live birth; Z3A.37 37 weeks gestation of pregnancy; K83.1 Obstruction of bile duct; O99.344 Other mental disorders complicating childbirth; F41.8 Other specified anxiety disorders; O26.62 Liver and biliary tract disorders in childbirth; O34.211 Maternal care for low transverse scar from previous cesarean delivery; Z86.16 Personal history of COVID-19; O77.0 Labor and delivery complicated by meconium in amniotic fluid; O70.0 First degree perineal laceration during delivery; O72.1 Other immediate postpartum hemorrhage
CPT/HCPCS: 36415; 59025; 59409; 80053; 82947; 84550; 85014; 85018; 85027; 85384; 85610; 85730; 86592; 86850; 86900; 86901; A9270-GY; J2270; J2405; J2590